=== PATIENT | male | born 1940 | race Hispanic/Latino ===

== ENCOUNTER 2020-07-11 18:02 | Emergency (ER) | payer MEDICARE ==
[~2020-07-11] VITALS: Ht 157.5 cm; Wt 70.8 kg
[2020-07-11] MEDS ORDERED: HYDRALAZINE HCL 20 MG/ML VIAL IV STA (18:27)
[2020-07-11] MEDS ORDERED: HYDRALAZINE HCL 20 MG/ML VIAL ONE (19:25)
[2020-07-11] MEDS ORDERED: POTASSIUM CHLORIDE 20 MEQ TAB CR PO STA (20:32)
[2020-07-11] MEDS ORDERED: CLONIDINE HCL 0.2 MG TAB PO ONE (20:45)
[2020-07-11] MEDS ORDERED: CLONIDINE HCL 0.1 MG TAB ONE (20:49)
[2020-07-11 21:08] VITALS: BP 173/94
== END 2020-07-11 21:29 | disposition home or self-care (01) ==
LOC: FSED 18:09
DX: U07.1 COVID-19 (principal); I16.0 Hypertensive urgency; E11.65 Type 2 diabetes mellitus with hyperglycemia; R11.2 Nausea with vomiting, unspecified; R53.1 Weakness; E78.5 Hyperlipidemia, unspecified
CPT/HCPCS: 70450; 71046; 80053; 83880; 84484; 85025; 93005; 99284; J0360; U0002

== ENCOUNTER 2020-09-24 21:16 | Emergency (ER) | payer MEDICARE, OTHER ==
[~2020-09-24] VITALS: Ht 154.9 cm; Wt 70.8 kg
[2020-09-24] MEDS ORDERED: ACETAMINOPHEN 325 MG TAB PO ONE (23:15)
[2020-09-24] MEDS ORDERED: ACETAMINOPHEN 325 MG TAB ONE (23:20)
[2020-09-24 23:26] VITALS: BP 173/87
== END 2020-09-24 23:25 | disposition home or self-care (01) ==
LOC: FSED 21:32
DX: S50.01XD Contusion of right elbow, subsequent encounter (principal); W01.0XXD Fall on same level from slipping, tripping and stumbling without subsequent striking against object, subsequent encounter; I10 Essential (primary) hypertension; E11.65 Type 2 diabetes mellitus with hyperglycemia; E78.5 Hyperlipidemia, unspecified; Z85.46 Personal history of malignant neoplasm of prostate
CPT/HCPCS: 99283